=== PATIENT | male | born 1990 | race American Indian/Alaskan Native ===

== ENCOUNTER 2022-04-30 12:10 | Inpatient (IN) | payer OTHER ==
[2022-04-30] MEDS ORDERED: LORazepam 2 MG/ML VIAL ONE ×2 (12:16→12:24)
--- NOTE | 2022-04-30 12:42 | Emergency Department Report ---
HPI - HPI HPI: Room 24 The patient is a 31-year-old male present with chief complaint of seizure. Patient has a history of seizures and reportedly on Keppra. EMS was called after the patient had a seizure. Upon arrival to the ED the patient had a generalized tonic-clonic seizure in the bathroom and is currently postictal <REA CHAVEZ - Last Filed: 04/30/22 12:37> - General PUI?: No <GUNJAN MCFARLANE III - Last Filed: 04/30/22 17:54> - General Chief Complaint: Seizure Time Seen by Provider: 04/30/22 12:34 ED Past Medical Hx - Past Medical History Hx Seizures: Yes - Surgical History Past Surgical History?: No - Family History Family history: no significant - Social History Smoking Status: Unknown if ever smoked <REA CHAVEZ - Last Filed: 04/30/22 12:37> - Past Medical History Previous Medical History?: Yes Hx Seizures: Yes - Surgical History Past Surgical History?: No - Family History Family history: no significant - Social History Smoking Status: Unknown if ever smoked Substance Use Type: Alcohol <GUNJAN MCFARLANE III - Last Filed: 04/30/22 17:54> ED Review of Systems ROS: Stated complaint: SEIZURE Other details as noted in HPI Comment: Unobtainable due to pts medical conditions <REA CHAVEZ - Last Filed: 04/30/22 12:37> ROS: Stated complaint: SEIZURE Other details as noted in HPI Comment: Unobtainable due to pts medical conditions <GUNJAN MCFARLANE III - Last Filed: 04/30/22 17:54> Physical Exam - Physical Exam Physical Exam: GENERAL: The patient is well-developed well-nourished male lying on stretcher seminiferous respirations currently postictal. [] HEENT: Normocephalic. Atraumatic. Patient has moist mucous membranes. NECK: Supple. Trachea midline CHEST/LUNGS: Clear to auscultation. There is no respiratory distress noted. HEART/CARDIOVASCULAR: Regular. There is no tachycardia. There is no gallop rub or murmur. ABDOMEN: Abdomen is soft, nontender. Patient has normal bowel sounds. There is no abdominal distention. SKIN: There is no rash. There is no edema. There is no diaphoresis. NEURO: The patient is currently postictal MUSCULOSKELETAL: There is no evidence of acute injury. <KAYCEEJessicaREA Fiona - Last Filed: 04/30/22 12:37> - Physical Exam Vital Signs: Vital Signs 04/30/22 04/30/22 04/30/22 12:35 14:30 14:34 Temperature 98.2 F Pulse Rate 90 136 H Respiratory 16 22 Rate Blood Pressure 146/80 142/72 [Left] O2 Sat by Pulse 98 99 97 Oximetry <GUNJAN MCFARLANE III Fiona - Last Filed: 04/30/22 17:54> ED Course Vital Signs 04/30/22 04/30/22 04/30/22 12:35 14:30 14:34 Temperature 98.2 F Pulse Rate 90 136 H Respiratory 16 22 Rate Blood Pressure 146/80 142/72 [Left] O2 Sat by Pulse 98 99 97 Oximetry - Reevaluation(s) Reevaluation #1: Patient signed out from previous physician to follow labs and imaging. Patient lying in bed. Patient not seizing at this time. 04/30/22 15:00 Reevaluation #2: Patient is still lethargic but arousable. I discussed with family. I discussed all results with patient and family. I discussed plan of care with patient and family. Family agrees with plan of care and admission. Patient to be admitted to the hospitalist service. 04/30/22 17:50 - Consultations Consultation #1: Hospitalist consulted for admission. Hospitalist to admit patient. 04/30/22 17:51 <DENYS CORTEZGUNJAN Jaimes - Last Filed: 04/30/22 17:54> ED Medical Decision Making - Differential Diagnosis Seizure <OLGA CHAVEZKE Fiona - Last Filed: 04/30/22 12:37> - Lab Data Result diagrams: 04/30/22 13:23 04/30/22 13:23 - Radiology Data Radiology results: report reviewed, image reviewed CT cervical spine wo con, CT head/brain wo con INDICATION: Seizure and fall. TECHNIQUE: CT head and cervical spine without contrast. All CT scans at this location are performed using CT dose reduction for ALARA by means of automated exposure control. COMPARISON: None. FINDINGS: HEAD: Intracranial: Rainey-white matter differentiation is maintained. No intracranial hemorrhage. No extra axial collection.. No hydrocephalus. No herniation. Sinuses: Paranasal sinuses and mastoid air cells are essentially clear. Orbits: Globes are intact Calvarium: No acute fracture. CERVICAL: Alignment: Reversal of the lordosis. Vertebrae: No fracture. Vertebral body heights are preserved. C1 and C2 are congruent. Atlantooccipital joint is maintained. Spondylolysis: No significant spondylosis. Soft tissues: No prevertebral soft tissue thickening. Additional findings: No significant additional findings. IMPRESSION: 1. No acute intracranial abnormality. 2.No cervical spine fracture. - Medical Decision Making Patient is a 31-year-old male that was signed out to me for following the labs and imaging. Patient found to have acute renal failure. Patient given fluids. Patient placed on a [facility] protocol for seizure precaution. Patient's clinical findings consistent with alcohol withdrawal and DTs. Patient had multiple seizures. Patient seize even with Ativan on board. Patient admitted to the hospitalist service. Critical care time documented due to the multiple reassessments, prolonged time at the bedside, interpretation of diagnostics and labs. - Differential Diagnosis Seizure, alcohol withdrawal <GUNJAN MCFARLANE III K - Last Filed: 04/30/22 17:54> Critical care attestation.: If time is entered above; I have spent that time in minutes in the direct care of this critically ill patient, excluding procedure time. <REA CHAVEZ - Last Filed: 04/30/22 12:37> Critical Care Time: Yes Critical care time in (mins) excluding proc time.: 35 Critical care attestation.: If time is entered above; I have spent that time in minutes in the direct care of this critically ill patient, excluding procedure time. Critical Care Time: 35 minutes <GUNJAN MCFARLANE III - Last Filed: 04/30/22 17:54> ED Disposition <REA CHAVEZ - Last Filed: 04/30/22 12:37> Is pt being admited?: Yes Does the pt Need Aspirin: No Time of Disposition: 17:52 <GUNJAN MCFARLANE III - Last Filed: 04/30/22 17:54> Clinical Impression: Status epilepticus, Seizure, DTs (delirium tremens) Alcohol withdrawal Qualifiers: Complication of substance-induced condition: with unspecified complication Qualified Code(s): F10.239 - Alcohol dependence with withdrawal, unspecified Acute renal failure Qualifiers: Acute renal failure type: unspecified Qualified Code(s): N17.9 - Acute kidney failure, unspecified Disposition: 09 ADMITTED INPATIENT Condition: Critical
[2022-04-30] MEDS ORDERED: LORazepam 2 MG/ML VIAL IV ONE ×2 (12:47→14:42)
[2022-04-30] MEDS ORDERED: KETAMINE 500 MG/5 ML VIAL MDV IV ONE (12:58)
[2022-04-30] MEDS ORDERED: KETAMINE 500 MG/5 ML VIAL MDV ONE (12:59)
[2022-04-30] MEDS ORDERED: levETIRAcetam 1000 MG/NS 0.75% 1,000 MG/100 ML BAG IV ONE (13:00)
[2022-04-30] MEDS ORDERED: diphenhydrAMINE 50 MG/ML VIAL IV ONE (13:00)
[2022-04-30 14:24] LABS: Hematocrit 46.8 % (35.5-45.6); Hemoglobin 14.9 gm/dl (11.8-15.2); Mean Corpuscular HGB Conc 32 % (32-34); Mean Corpuscular Volume 105 fl (84-94); Platelet Count 284 K/mm3 (140-440); Red Blood Count 4.46 M/mm3 (3.65-5.03); Red Cell Distribution Width 12.9 % (13.2-15.2)
[2022-04-30] MEDS ORDERED: SODIUM CHLORIDE 0.9% 1000 ML 1,000 ML IV ONE ×3 (14:39→14:42)
--- NOTE | 2022-04-30 15:50 | Cat Scan Report ---
CT cervical spine wo con, CT head/brain wo con INDICATION: Seizure and fall. TECHNIQUE: CT head and cervical spine without contrast. All CT scans at this location are performed u sing CT dose reduction for ALARA by means of automated exposure control. COMPARISON: None. FINDINGS: HEAD: Intracranial: Rainey-white matter differentiation is maintained. No intracranial hemorrhage. No extra a xial collection.. No hydrocephalus. No herniation. Sinuses: Paranasal sinuses and mastoid air cells are essentially clear. Orbits: Globes are intact Calvarium: No acute fracture. CERVICAL: Alignment: Reversal of the lordosis. Vertebrae: No fracture. Vertebral body heights are preserved. C1 and C2 are congruent. Atlantooccipi shavon joint is maintained. Spondylolysis: No significant spondylosis. Soft tissues: No prevertebral soft tissue thickening. Additional findings: No significant additional findings. IMPRESSION: 1. No acute intracranial abnormality. 2.No cervical spine fracture. Signer Name: Manuel Chung MD Signed: 04/30/2022 3:45 PM Workstation Name: [id number]
[2022-04-30 16:08] LABS: Basophils % (Manual) 0 % (0.0-1.8); Eosinophils % (Manual) 0 % (0.0-4.3); Total Cells Counted 100
[2022-04-30 16:11] LABS: Burr Cells Rare; Ovalocytes Rare
[2022-04-30 16:12] LABS: Large Platelets Rare; Platelet Estimate Consistent w Auto; Poikilocytosis Rare
[2022-04-30] MEDS ORDERED: LORazepam 2 MG/ML VIAL IV PRN ×3 (17:38)
--- NOTE | 2022-04-30 17:48 | History and Physical Report ---
History of Present Illness Chief complaint: He had a seizure History of present illness: 31 YO Male with Seizure Disorder, ETOH Dependence presents to ED for evaluation. Patient is confused and lethargic at the time of my evaluation is unable to provide history. Patient history taken from EMS staff, ED staff. EMS was notified of the patient had a witnessed seizure. Patient experienced multiple seizures without to baseline cognition. Patient transported to [facility] for further care and evaluation of the aforementioned symptoms. The patient was seen and evaluated in the emergency department. All lab and imaging studies reviewed. Patient found to have status epilepticus as well as delirium tremens secondary to alcohol withdrawal syndrome. Patient found to be tremulous, agitated, confabulating, anxious, and diaphoretic. Patient admitted to medical floor and initiated on alcohol withdrawal protocol as well as antiepileptic therapy with Keppra. Patient has diminished cognition at the time my evaluation but has a positive gag reflex and is able protect his airway without difficulty. No further history is obtainable. No prior admission for review. No medication listed at time of admission for reconciliation. Advanced care planning conducted in ED. - G Past History Past Medical History: seizures Past Surgical History: No surgical history, Other (Reviewed) Social history: single, alcohol abuse Family history: hypertension Medications and Allergies Allergies Allergy/AdvReac Type Severity Reaction Status Date / Time No Known Allergies Allergy Verified 04/30/22 12:48 Active Meds: Active Medications Lorazepam (Lorazepam 2 Mg/Ml Vial) 2 mg IV Q1H PRN PRN Reason: CIWA-Ar 8-15 Lorazepam (Lorazepam 2 Mg/Ml Vial) 4 mg IV Q1H PRN PRN Reason: CIWA-Ar 16-25 Lorazepam (Lorazepam 2 Mg/Ml Vial) 4 mg IV Q15MIN PRN PRN Reason: CIWA-Ar >25 Review of Systems ROS unobtainable: due to mental status Exam - Constitutional Vitals: Temp Pulse Resp BP Pulse Ox 98.2 F 136 H 22 142/72 97 04/30/22 12:35 04/30/22 14:34 04/30/22 14:34 04/30/22 14:34 04/30/22 14:34 General appearance: Present: mild distress - EENT Eyes: Present: PERRL ENT: hearing intact, clear oral mucosa - Neck Neck: Present: supple, normal ROM - Respiratory Respiratory effort: normal Respiratory: bilateral: CTA - Cardiovascular Heart Sounds: Present: S1 & S2. Absent: rub, click - Extremities Extremities: pulses symmetrical, No edema Peripheral Pulses: within normal limits - Abdominal General gastrointestinal: Present: soft, non-tender, non-distended, normal bowel sounds Male genitourinary: Present: normal - Integumentary Integumentary: Present: clear, warm, dry - Musculoskeletal Musculoskeletal: generalized weakness - Psychiatric Psychiatric: no appropriate mood/affect, no intact judgment & insight, no memory intact, cooperative - Neurologic Neurologic: CNII-XII intact, moves all extremities Results - Labs CBC & Chem 7: 04/30/22 13:23 04/30/22 13:23 Labs: Abnormal lab results 04/30/22 04/30/22 Range/Units 13:23 13:23 WBC 15.5 H (4.5-11.0) K/mm3 Hct 46.8 H (35.5-45.6) % MCV 105 H (84-94) fl MCH 33 H (28-32) pg RDW 12.9 L (13.2-15.2) % Seg Neuts % (Manual) 87.0 H (40.0-70.0) % Lymphocytes % (Manual) 5.0 L (13.4-35.0) % Monocytes % (Manual) 8.0 H (0.0-7.3) % Seg Neutrophils # Man 13.5 H (1.8-7.7) K/mm3 Lymphocytes # (Manual) 0.8 L (1.2-5.4) K/mm3 Monocytes # (Manual) 1.2 H (0.0-0.8) K/mm3 Chloride 97.5 L (98-107) mmol/L Creatinine 5.1 H (0.8-1.3) mg/dL Glucose 175 H (75-100) mg/dL Assessment and Plan - Patient Problems (1) Alcohol withdrawal Current Visit: Yes Status: Acute Qualifiers: Complication of substance-induced condition: with unspecified complication Qualified Code(s): F10.239 - Alcohol dependence with withdrawal, unspecified Plan to address problem: [facility] protocol: Banana bag, thiamine, folic acid, multivitamin daily. IV fluid resuscitation therapy, blood alcohol level. (2) Status epilepticus Current Visit: Yes Status: Acute Plan to address problem: Keppra loading in the ED, Ativan as needed, Keppra 500 mg twice daily, neuro check, seizure cautions. (3) Rhabdomyolysis Current Visit: Yes Status: Acute Qualifiers: Encounter type: initial encounter Plan to address problem: IV fluid cessation therapy, CK level, received repeat CK level in a.m. (4) Acute kidney injury (PENELOPE) with acute tubular necrosis (ATN) Current Visit: Yes Status: Acute Plan to address problem: BMP, IV fluid resuscitation therapy, repeat BMP in a.m., urine electrolytes, renal ultrasound, nephrology team consulted in ED. (5) SIRS (systemic inflammatory response syndrome) Current Visit: Yes Status: Acute Plan to address problem: Empiric IV antibiotic therapy x1 dose, CBC, repeat CBC in AM. (6) DVT prophylaxis Current Visit: Yes Status: Acute Plan to address problem: SCD to bilateral lower extremities while in bed (7) Advance care planning Current Visit: Yes Status: Acute Plan to address problem: Disease education done, care plan discussed, diagnosis discussed, prognosis discussed, +30 minutes.
[2022-04-30] MEDS ORDERED: oxyCODONE /ACETAMINOPHEN 5-325MG TAB PO PRN (17:50)
[2022-04-30] MEDS ORDERED: ALBUTEROL 2.5 MG/3 ML NEBU IH PRN (17:50)
[2022-04-30] MEDS ORDERED: ONDANSETRON 4 MG/2 ML INJ IV PRN (17:50)
[2022-04-30] MEDS ORDERED: HYDROmorphone 0.5 MG/0.5 ML INJ IV PRN (17:50)
[2022-04-30] MEDS ORDERED: ACETAMINOPHEN 325 MG TAB PO PRN (17:50)
[2022-04-30] MEDS ORDERED: THIAMINE 100 MG, FOLIC ACID 1 MG, MULTIPLE VITAMIN INJ, ADULT 10 ML in SODIUM CHLORIDE ... IV ONE (17:53)
[2022-04-30] MEDS ORDERED: THIAMINE 100 MG TAB PO ONE (17:54)
[2022-04-30] MEDS ORDERED: MULTIVITAMINS ,THERAPEUTIC TAB PO ONE (17:54)
[2022-04-30 20:52] LABS: Bilirubin,Urine NEG (Negative); Blood,Urine MOD (Negative); Color,Urine Straw (Yellow); Protein,Urine <15 mg/dL mg/dL (Negative); Urobilinogen,Urine < 2.0 mg/dL (<2.0)
[2022-04-30 21:01] LABS: Amphetamine Screen,Urine PRESUMPTIVE NEGATIVE; Benzodiazepines Screen,Urine PRESUMPTIVE NEGATIVE; Cannabinoid Screen,Urine PRESUMPTIVE POSITIVE; Cocaine Screen,Urine PRESUMPTIVE NEGATIVE; Creatinine,Urine 57.1 mg/dL (0.1-20.0); Methadone Screen,Urine PRESUMPTIVE NEGATIVE; Opiate Screen,Urine PRESUMPTIVE NEGATIVE
[2022-04-30] MEDS: levETIRAcetam 500 MG/5 ML ORAL LIQD PO SCH (22:28)
[2022-05-01] MEDS: SODIUM CHLORIDE 0.9% 1000 ML 1,000 ML IV SCH ×3 (02:36→19:15)
[2022-05-01 05:31] LABS: BUN/Creatinine Ratio 11; Blood Urea Nitrogen 16 mg/dL (9-20); Calcium 9.2 mg/dL (8.4-10.2); Hemolysis Index 1
--- NOTE | 2022-05-01 07:47 | Consultation ---
History of Present Illness - Reason for Consult Consult date: 05/01/22 acute renal failure Past History Past Medical History: seizures Past Surgical History: No surgical history, Other (Reviewed) Social history: single, alcohol abuse Family history: hypertension Medications and Allergies Allergies Allergy/AdvReac Type Severity Reaction Status Date / Time No Known Allergies Allergy Verified 04/30/22 12:48 Active Meds: Active Medications Acetaminophen (Acetaminophen 325 Mg Tab) 650 mg PO Q4H PRN PRN Reason: Pain MILD(1-3)/Fever >100.5/MAY Albuterol (Albuterol 2.5 Mg/3 Ml Nebu) 2.5 mg IH Q4HRT PRN PRN Reason: Shortness Of Breath Folic Acid (Folic Acid 1 Mg Tab) 1 mg PO QDAY [facility] Hydromorphone HCl (Hydromorphone 0.5 Mg/0.5 Ml Inj) 0.5 mg IV Q23H PRN PRN Reason: Pain , Severe (7-10) Sodium Chloride (Nacl 0.9% 1000 Ml) 1,000 mls @ 150 mls/hr IV DIRECT DIANE Stop: 05/03/22 04:09 Last Admin: 05/01/22 02:36 Dose: 150 mls/hr Levetiracetam (Levetiracetam 500 Mg/5 Ml Oral Liqd) 500 mg PO BID [facility] Last Admin: 04/30/22 22:28 Dose: 500 mg Lorazepam (Lorazepam 2 Mg/Ml Vial) 2 mg IV Q1H PRN PRN Reason: CIWA-Ar 8-15 Lorazepam (Lorazepam 2 Mg/Ml Vial) 4 mg IV Q1H PRN PRN Reason: CIWA-Ar 16-25 Lorazepam (Lorazepam 2 Mg/Ml Vial) 4 mg IV Q15MIN PRN PRN Reason: CIWA-Ar >25 Ondansetron HCl (Ondansetron 4 Mg/2 Ml Inj) 4 mg IV Q8H PRN PRN Reason: Nausea And Vomiting Oxycodone/Acetaminophen (Oxycodone /Acetaminophen 5-325mg Tab) 1 tab PO Q6H PRN PRN Reason: Pain, Moderate (4-6) Sodium Chloride (Sodium Chloride 0.9% 10 Ml Flush Syringe) 10 ml IV BID [facility] Last Admin: 04/30/22 22:29 Dose: 10 ml Sodium Chloride (Sodium Chloride 0.9% 10 Ml Flush Syringe) 10 ml IV PRN PRN PRN Reason: LINE FLUSH Exam - Vital Signs Vital signs: Vital Signs Temp Pulse Resp BP Pulse Ox 98.2 F 90 16 146/80 98 04/30/22 12:35 04/30/22 12:35 04/30/22 12:35 04/30/22 12:35 04/30/22 12:35 Results - Lab Results 04/30/22 13:23 05/01/22 03:52 Most recent lab results Calcium 9.2 mg/dL (8.4-10.2) 05/01/22 03:52 Magnesium 1.80 mg/dL (1.7-2.3) 04/30/22 13:23 Urine Creatinine 57.1 mg/dL (0.1-20.0) H 04/30/22 Unknown Urine Sodium 131 mmol/L 04/30/22 Unknown
[2022-05-01] MEDS: levETIRAcetam 500 MG/5 ML ORAL LIQD PO SCH ×2 (09:10→21:29)
[2022-05-01] MEDS: FOLIC ACID 1 MG TAB PO SCH (09:10)
--- NOTE | 2022-05-01 10:55 | Progress Note ---
Assessment and Plan (1) Alcohol withdrawal Current Visit: Yes Status: Acute Qualifiers: Complication of substance-induced condition: with unspecified complication Qualified Code(s): F10.239 - Alcohol dependence with withdrawal, unspecified Plan to address problem: CIAR protocol: Banana bag, thiamine, folic acid, multivitamin daily. IV fluid resuscitation therapy, blood alcohol level. (2) Status epilepticus Current Visit: Yes Status: Acute Plan to address problem: Keppra loading in the ED, Ativan as needed, started Keppra 500 mg twice daily, neuro check, seizure cautions. (3) Rhabdomyolysis Current Visit: Yes Status: Acute Qualifiers: Encounter type: initial encounter Plan to address problem: Continue IV fluid resuscitation therapy, monitor CPK level (4) Acute kidney injury (PENELOPE) with acute tubular necrosis (ATN) Current Visit: Yes Status: Acute Plan to address problem: IV fluid resuscitation therapy, repeat BMP in a.m., urine electrolytes, renal ultrasound, nephrology team consulted in ED. (5) SIRS (systemic inflammatory response syndrome) Current Visit: Yes Status: Acute Plan to address problem: Empiric IV antibiotic therapy x1 dose, CBC, repeat CBC in AM. (6) DVT prophylaxis Current Visit: Yes Status: Acute Plan to address problem: SCD to bilateral lower extremities while in bed (7) Advance care planning Current Visit: Yes Status: Acute Plan to address problem: Disease education done, care plan discussed, diagnosis discussed, prognosis discussed, +30 minutes. -- Continue CIWA protocol, increase Keppra dose to 750 mg twice daily. Continue to monitor CPK. Creatinine trending down, continue IV fluid . Subjective Date of service: 05/01/22 Interval history: Patient seen and examined. Medical records and medication list reviewed. No acute event overnight noted by the RN. Patient denies any chest pain or difficulty breathing. Patient is tolerating diet. Discussed plan of care at bedside with patient and with his father. Objective - Exam Narrative Exam: GENERAL: well-developed and well-nourished -Stateless male lying on bed appeared to be in no discomfort. HEENT: Normocephalic. Atraumatic. No conjunctival congestion or icterus. Patient has moist mucous membranes. NECK: Supple. Trachea midline. CHEST/LUNGS: Clear to auscultated bilaterally, breathing nonlabored. No wheezes crackles or rhonchi. HEART/CARDIOVASCULAR: Regular in rate and rhythm. S1 and S2 positive. ABDOMEN: Abdomen is soft, nontender. Patient has normal bowel sounds. SKIN: There is no rash. Warm and dry. NEURO: No focal motor deficit. Follows command. MUSCULOSKELETAL: No joint effusion or tenderness. EXTRIMITY: No edema, no cyanosis or clubbing. PSYCH: Cooperative. - Constitutional Vitals: Vital Signs - 12hr 05/01/22 05/01/22 05/01/22 00:00 00:37 03:43 Temperature 97.9 F 98.6 F Pulse Rate 63 67 Respiratory 17 18 Rate Blood Pressure 130/89 Blood Pressure 134/85 [Left] O2 Sat by Pulse 99 98 99 Oximetry 05/01/22 05/01/22 08:10 08:32 Temperature 98.6 F Pulse Rate 67 Respiratory 18 Rate Blood Pressure 124/77 Blood Pressure [Left] O2 Sat by Pulse 100 98 Oximetry - Labs CBC & Chem 7: 04/30/22 13:23 05/01/22 03:52 Labs: Abnormal lab results 04/30/22 04/30/22 04/30/22 Range/Units 13:23 13:23 18:03 WBC 15.5 H (4.5-11.0) K/mm3 Hct 46.8 H (35.5-45.6) % MCV 105 H (84-94) fl MCH 33 H (28-32) pg RDW 12.9 L (13.2-15.2) % Seg Neuts % (Manual) 87.0 H (40.0-70.0) % Lymphocytes % (Manual) 5.0 L (13.4-35.0) % Monocytes % (Manual) 8.0 H (0.0-7.3) % Seg Neutrophils # Man 13.5 H (1.8-7.7) K/mm3 Lymphocytes # (Manual) 0.8 L (1.2-5.4) K/mm3 Monocytes # (Manual) 1.2 H (0.0-0.8) K/mm3 Chloride 97.5 L (98-107) mmol/L Carbon Dioxide (22-30) mmol/L Creatinine 5.1 H (0.8-1.3) mg/dL Glucose 175 H (75-100) mg/dL Total Creatine Kinase 1037 H (55-170) units/L Urine Creatinine (0.1-20.0) mg/dL 04/30/22 05/01/22 05/01/22 Range/Units Unknown 03:52 07:08 WBC (4.5-11.0) K/mm3 Hct (35.5-45.6) % MCV (84-94) fl MCH (28-32) pg RDW (13.2-15.2) % Seg Neuts % (Manual) (40.0-70.0) % Lymphocytes % (Manual) (13.4-35.0) % Monocytes % (Manual) (0.0-7.3) % Seg Neutrophils # Man (1.8-7.7) K/mm3 Lymphocytes # (Manual) (1.2-5.4) K/mm3 Monocytes # (Manual) (0.0-0.8) K/mm3 Chloride 109.2 H (98-107) mmol/L Carbon Dioxide 18 L (22-30) mmol/L Creatinine 1.5 H D (0.8-1.3) mg/dL Glucose (75-100) mg/dL Total Creatine Kinase 2816 H (55-170) units/L Urine Creatinine 57.1 H (0.1-20.0) mg/dL
--- NOTE | 2022-05-01 18:14 | Ultrasound Report ---
ULTRASOUND RENAL INDICATION / CLINICAL INFORMATION: mario alberto. COMPARISON: None available. FINDINGS: RIGHT KIDNEY: Length = 9.9 cm. - Echogenicity: Mildly echogenic. - Parenchymal Thickness: Normal. - Hydronephrosis: None. - Cyst / Mass: None. - Stones: None seen. LEFT KIDNEY: Length = 10.4 cm. - Echogenicity: Mildly echogenic. - Parenchymal Thickness: Normal. - Hydronephrosis: None. - Cyst / Mass: None. - Stones: None seen. URINARY BLADDER: No significant abnormality. FREE FLUID: None. ADDITIONAL FINDINGS: None. IMPRESSION: 1. No acute sonographic abnormality of the kidneys. No hydronephrosis. 2. Mildly echogenic kidneys which can be seen in medical renal disease. Signer Name: Nisha Briseno MD Signed: 05/01/2022 6:09 PM Workstation Name: [id number]
[2022-05-02 07:56] VITALS: BP 121/66
[2022-05-02] MEDS: FOLIC ACID 1 MG TAB PO SCH (09:10)
[2022-05-02] MEDS: levETIRAcetam 500 MG/5 ML ORAL LIQD PO SCH (09:10)
[2022-05-02] MEDS ORDERED: levETIRAcetam 500 MG/5 ML ORAL LIQD PO SCH (11:01)
--- NOTE | 2022-05-02 11:35 | Discharge Summary ---
Providers - Providers Date of Admission: 04/30/22 17:51 Date of discharge: 05/02/22 Attending physician: ALTAF DEAN 04/30/22 21:26 Consult to Physician [CONS] Routine Comment: Consulting Provider: MARIZA KHAN Physician Instructions: Reason For Exam: [email or web address]/[email or web address] Primary care physician: ORAL THERAPIST Hospitalization Condition: Critical Final Discharge Diagnosis (Prints w/discharge instructions): --Alcohol withdrawal. --Status epilepticus. --Rhabdomyolysis. --Acute kidney injury (PENELOPE) with acute tubular necrosis (ATN), improved. -- SIRS (systemic inflammatory response syndrome) Time spent for discharge: 34 minutes Core Measure Documentation - Palliative Care Palliative Care/ Comfort Measures: Not Applicable - Core Measures Any of the following diagnoses?: none Exam - Physical Exam Narrative exam: GENERAL: well-developed and well-nourished -[place] male lying on bed appeared to be in no discomfort. HEENT: Normocephalic. Atraumatic. No conjunctival congestion or icterus. Patient has moist mucous membranes. NECK: Supple. Trachea midline. CHEST/LUNGS: Clear to auscultated bilaterally, breathing nonlabored. No wheezes crackles or rhonchi. HEART/CARDIOVASCULAR: Regular in rate and rhythm. S1 and S2 positive. ABDOMEN: Abdomen is soft, nontender. Patient has normal bowel sounds. SKIN: There is no rash. Warm and dry. NEURO: No focal motor deficit. Follows command. MUSCULOSKELETAL: No joint effusion or tenderness. EXTRIMITY: No edema, no cyanosis or clubbing. PSYCH: Cooperative. - Constitutional Vitals: Temp Pulse Resp BP Pulse Ox 98.0 F 55 L 16 121/66 100 05/02/22 07:55 05/02/22 07:55 05/02/22 07:55 05/02/22 07:55 05/02/22 07:55 Plan Activity: advance as tolerated Weight Bearing Status: Non-Weight Bearing Diet: low fat, low salt Additional Instructions: Outpt alcohol rehab program. f/u with neurologist in one week. repeat BMP and CPK in 2 days Follow up with: TANK BLUE MD [Primary Care Provider] - 3-5 Days MARIZA KHAN MD [Staff Physician] - 7 Days Prescriptions: Folic Acid [Folvite] 1 mg PO QDAY #30 tablet levETIRAcetam [Keppra TAB] 750 mg PO BID #60 Thiamine [Vitamin B-1] 100 mg PO QDAY #14 tablet
[2022-05-02 12:13] LABS: Hematocrit 40.4 % (35.5-45.6); Hemoglobin 13.6 gm/dl (11.8-15.2); Mean Corpuscular HGB Conc 34 % (32-34); Mean Corpuscular Volume 102 fl (84-94); Platelet Count 202 K/mm3 (140-440); Red Blood Count 3.95 M/mm3 (3.65-5.03); Red Cell Distribution Width 12.6 % (13.2-15.2)
[2022-05-02 12:42] LABS: BUN/Creatinine Ratio 11; Blood Urea Nitrogen 13 mg/dL (9-20); Calcium 9.3 mg/dL (8.4-10.2); Hemolysis Index 1
--- NOTE | 2022-05-02 12:50 | Progress Note ---
Subjective Date of service: 05/02/22 Objective - Vital Signs Vital signs: Vital Signs - 12hr 05/02/22 05/02/22 04:00 07:55 Temperature 98.0 F Pulse Rate 52 L 55 L Respiratory 20 16 Rate Blood Pressure 127/70 121/66 O2 Sat by Pulse 100 100 Oximetry - Lab 05/02/22 11:04 05/02/22 10:13 Most recent lab results Calcium 9.3 mg/dL (8.4-10.2) 05/02/22 10:13 Magnesium 1.80 mg/dL (1.7-2.3) 04/30/22 13:23 Urine Creatinine 57.1 mg/dL (0.1-20.0) H 04/30/22 Unknown Urine Sodium 131 mmol/L 04/30/22 Unknown Medications & Allergies - Medications Allergies/Adverse Reactions: Allergies No Known Allergies Allergy (Verified 04/30/22 12:48) Home Medications: Home Medications Medication Instructions Recorded Confirmed Last Taken Type Folic Acid [Folvite] 1 mg PO QDAY #30 tablet 05/02/22 Unknown Rx Thiamine [Vitamin B-1] 100 mg PO QDAY #14 tablet 05/02/22 Unknown Rx levETIRAcetam [Keppra TAB] 750 mg PO BID #60 05/02/22 Unknown Rx Active Medications: Generic Name Dose Route Start Last Admin Trade Name Hongq PRN Reason Stop Dose Admin Acetaminophen 650 mg 04/30/22 17:50 Acetaminophen 325 Mg Tab PO Q4H PRN Pain MILD(1-3)/Fever >100.5/MAY Albuterol 2.5 mg 04/30/22 17:50 Albuterol 2.5 Mg/3 Ml Nebu IH Q4HRT PRN Shortness Of Breath Folic Acid 1 mg 05/01/22 10:00 05/02/22 09:10 Folic Acid 1 Mg Tab PO 1 mg QDAY DIANE Administration Hydromorphone HCl 0.5 mg 04/30/22 17:50 Hydromorphone 0.5 Mg/0.5 Ml Inj IV Q23H PRN Pain , Severe (7-10) Sodium Chloride 1,000 mls @ 150 mls/hr 04/30/22 21:30 05/01/22 19:15 Nacl 0.9% 1000 Ml IV 05/03/22 04:09 150 mls/hr DIRECT DIANE Administration Lorazepam 2 mg 04/30/22 17:38 Lorazepam 2 Mg/Ml Vial IV Q1H PRN CIWA-Ar 8-15 Lorazepam 4 mg 04/30/22 17:38 Lorazepam 2 Mg/Ml Vial IV Q1H PRN CIWA-Ar 16-25 Lorazepam 4 mg 04/30/22 17:38 Lorazepam 2 Mg/Ml Vial IV Q15MIN PRN CIWA-Ar >25 Ondansetron HCl 4 mg 04/30/22 17:50 Ondansetron 4 Mg/2 Ml Inj IV Q8H PRN Nausea And Vomiting Oxycodone/Acetaminophen 1 tab 04/30/22 17:50 Oxycodone /Acetaminophen 5-325mg Tab PO Q6H PRN Pain, Moderate (4-6) Sodium Chloride 10 ml 04/30/22 22:00 05/02/22 09:11 Sodium Chloride 0.9% 10 Ml Flush Syringe IV 10 ml BID DIANE Administration Sodium Chloride 10 ml 04/30/22 17:50 Sodium Chloride 0.9% 10 Ml Flush Syringe IV PRN PRN LINE FLUSH
== END 2022-05-02 16:11 | disposition home or self-care (01) | DRG 100 ==
LOC: ED 12:10 → 4A 17:51
PROVIDERS: ADMIT Internal Medicine; ATTEND Internal Medicine
DX: G40.401 Other generalized epilepsy and epileptic syndromes, not intractable, with status epilepticus (principal); N17.0 Acute kidney failure with tubular necrosis; F10.231 Alcohol dependence with withdrawal delirium; M62.82 Rhabdomyolysis; R65.10 Systemic inflammatory response syndrome (SIRS) of non-infectious origin without acute organ dysfunction; Z20.822 Contact with and (suspected) exposure to COVID-19; Z79.899 Other long term (current) drug therapy; Y90.9 Presence of alcohol in blood, level not specified
CPT/HCPCS: 36415; 70450; 72125; 76770; 80048; 80307; 80320; 81001; 82550; 82570; 83735; 83970; 84300; 85007; 85025; 85027; G0378; J3490; G0480; J1200; J1953; J1956; J2060; J3411; J7030